=== PATIENT | female | born 2000 | race African-American/Black ===

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

== ENCOUNTER 2020-01-14 11:35 | Emergency (ER) | payer SELFPAY ==
[~2020-01-14 11:35] MED LIST changes: +ACET500T68 PO; -ALBU2.5V8 IH; +GUAI100L12 PO; +OSEL75CA PO; +PROVENTIL HFA6.7 GM IH
== END 2020-01-14 11:40 | disposition left against medical advice (07) ==
LOC: ER 11:35
DX: Z32.00 Encounter for pregnancy test, result unknown (principal); Z53.21 Procedure and treatment not carried out due to patient leaving prior to being seen by health care provider